=== PATIENT | female | born 1940 | race Caucasian/White ===

== ENCOUNTER 2017-11-02 16:05 | Emergency (ER) | payer MEDICARE, OTHER ==
[2017-11-02 16:14] VITALS: BP 121/54
[2017-11-02] MEDS ORDERED: Famotidine 20 MG/2 ML SDV IVPUSH ONE (16:44)
[2017-11-02] MEDS ORDERED: diphenhydrAMINE 50 MG/ML SDV IVPUSH ONE (16:44)
--- NOTE | 2017-11-02 17:06 | EDM.PDOC ---
ED HPI GENERAL MEDICAL PROBLEM - General Chief Complaint: ENT Problem Stated Complaint: DOUBLE EAR PAIN Time Seen by Provider: 11/02/17 16:59 Source of Information: Reports: Patient History Limitations: Reports: No Limitations - History of Present Illness INITIAL COMMENTS - FREE TEXT/NARRATIVE: 77 year old female presents with her for evaluation and treatment of bilateral ear discomfort. Patient is pleasantly demented and unable to provide a reliable history. reports for the last month she has been picking at her ears and complaining of discomfort. She was seen by her PCP who removed a fair amount of wax from her ear canals. They have been using OTC drops for wax removal since. no fevers, cough or recent cold symptoms. During triage, nursing staff noted erythema to the neck and face. Patient denies any shortness of breath, throat pain or throat swelling. She is in no obvious distress. No new lotions, detergents, soaps, etc. they can think of. Onset: Today Bilateral Ear Pain Score (Numeric/FACES): 4 - Related Data Allergies Allergy/AdvReac Type Severity Reaction Status Date / Time No Known Allergies Allergy Verified 11/02/17 17:18 Home Meds: Home Meds Amiodarone [Cordarone] 200 mg PO DAILY 08/23/16 [History] Aspirin 81 mg PO DAILY 08/23/16 [History] Carvedilol [Coreg] 3.125 mg PO BID 08/23/16 [History] Cholecalciferol (Vitamin D3) [Vitamin D3] 1,000 units PO DAILY 08/23/16 [History ] Clopidogrel [Plavix] 75 mg PO DAILY 08/23/16 [History] Donepezil HCl [Aricept] 5 mg PO DAILY 08/23/16 [History] Eplerenone 25 mg PO DAILY 08/23/16 [History] Gluc HCl/Csa/Dangelo Hy/Hyalur Ac [Glucosamine Chondroitin] 1 tab PO BID 08/23/16 [ History] Lenalidomide [Revlimid] 10 mg PO ASDIRECTED 08/23/16 [History] Levothyroxine 25 mcg PO DAILY 08/23/16 [History] Lisinopril [Prinivil] 2.5 mg PO DAILY 08/23/16 [History] Nitroglycerin [Nitrostat] 0.4 mg SL ASDIRECTED PRN 08/23/16 [History] PARoxetine HCl [Paxil] 30 mg PO DAILY 08/23/16 [History] atorvaSTATin [Lipitor] 80 mg PO DAILY 08/23/16 [History] buPROPion [Wellbutrin XL] 150 mg PO DAILY 08/23/16 [History] Isosorbide Mononitrate [Imdur] 30 mg PO DAILY #30 tab.er 08/25/16 [Rx] Calcium Carbonate [Calcium] 500 mg PO BID 12/24/16 [History] Ferrous Sulfate [Iron] 325 mg PO DAILY 12/24/16 [History] Multivitamin [Multi-Day Vitamins] 1 each PO DAILY 12/24/16 [History] [place]-3 Fatty Acids [Fish Oil] 300 mg PO BID 12/24/16 [History] Vitamin B Complex 1 each PO DAILY 12/24/16 [History] Ciprofloxacin/Dexamethasone [Ciprodex Otic Susp] 4 drop EARBOTH BID #1 bottle [Rx] Past Medical History HEENT History: Reports: Cataract, Impaired Vision Cardiovascular History: Reports: [place] Gastrointestinal History: Reports: GERD 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 - Past Surgical History Cardiovascular Surgical History: Reports: Coronary Artery Stent Other GI Surgeries/Procedures: Anti reflux procedure for GERD Social & Family History - Family History Family Medical History: Noncontributory Cardiac: Reports: [place] Neurological: Reports: CVA - Tobacco Use Smoking Status *Q: Never Smoker Second Hand Smoke Exposure: No - Caffeine Use Caffeine Use: Reports: Coffee, Tea - Alcohol Use Days Per Week of Alcohol Use: 0 - Recreational Drug Use Recreational Drug Use: No - Living Situation & Occupation Living situation: Reports: , with Spouse Occupation: Retired ED ROS ENT - Review of Systems Review Of Systems: See Below Constitutional: Denies: Fever HEENT: Reports: Ear Pain (bilateral). Denies: Ear Discharge, Throat Pain, Throat Swelling Respiratory: Denies: Shortness of Breath, Wheezing, Cough GI/Abdominal: Denies: Nausea, Vomiting Skin: Reports: Pruritis, Erythema (neck, head, arms, cheset and back) ED EXAM, ENT - Physical Exam Exam: See Below Exam Limited By: No Limitations General Appearance: Alert, WD/WN, No Apparent Distress Eye Exam: Bilateral Eye: Normal Inspection Ears: Normal External Exam, Normal TMs, Canal Swelling (right), Other (cerumen present in the right ear canal, removed with a currette ) Nose: Normal Inspection Mouth/Throat: Normal Inspection, Normal Gums, Normal Oropharynx, Normal Teeth. No: Uvular Deviation, Uvular Edema Respiratory/Chest: No Respiratory Distress, Lungs Clear, Normal Breath Sounds Cardiovascular: Normal Peripheral Pulses, Regular Rate, Rhythm, No Murmur GI/Abdominal: Soft, Non-Tender Neurological: Alert, Confused Psychiatric: Normal Affect, Normal Mood Skin: Warm, Dry, Erythema (erythematous macular rash to the neck, head, chest, back, abdomen and bilteral arms) Course - Vital Signs Last Recorded V/S: Last Vital Signs Temp 37.4 C 11/02/17 16:12 Pulse 79 11/02/17 16:12 Resp 20 11/02/17 16:12 BP 121/54 L 11/02/17 16:12 Pulse Ox 99 11/02/17 16:12 - Orders/Labs/Meds Labs: Laboratory Tests 11/02/17 11/02/17 Range/Units 17:05 17:05 WBC 10.42 H (3.98-10.04) K/mm3 RBC 4.15 (3.98-5.22) M/mm3 Hgb 13.7 (11.2-15.7) gm/L Hct 41.9 (34.1-44.9) % MCV 101.0 H (79.4-94.8) fl MCH 33.0 H (25.6-32.2) pg MCHC 32.7 (32.2-35.5) g/dl RDW Std Deviation 53.5 H (36.4-46.3) fL Plt Count 171 L (182-369) K/mm3 MPV 10.2 (9.4-12.3) fl Neutrophils % (Manual) 87 H (40-60) % Band Neutrophils % 0 (0-10) % Lymphocytes % (Manual) 7 L (20-40) % Atypical Lymphs % 0 % Monocytes % (Manual) 4 (2-10) % Eosinophils % (Manual) 2 (0.7-5.8) % Basophils % (Manual) 0 L (0.1-1.2) Platelet Estimate Adequate Plt Morphology Comment Normal Poikilocytosis 1+ slight Stomatocytes 1+ slight RBC Morph Comment Normal Sodium 140 (136-145) mEq/L Potassium 4.7 (3.5-5.1) mEq/L Chloride 106 (98-107) mEq/L Carbon Dioxide 25 (21-32) mEq/L Anion Gap 13.7 (5-15) BUN 33 H (7-18) mg/dL Creatinine 1.8 H (0.55-1.02) mg/dL Est Cr Clr Drug Dosing 21.65 mL/min Estimated GFR (MDRD) 27 (>60) mL/min BUN/Creatinine Ratio 18.3 H (14-18) Glucose 94 (83-115) mg/dL Calcium 9.6 (8.5-10.1) mg/dL Total Bilirubin 0.4 (0.2-1.0) mg/dL AST 47 H (15-37) U/L ALT 60 H (14-59) U/L Alkaline Phosphatase 116 (46-116) U/L Total Protein 6.9 (6.4-8.2) g/dl Albumin 3.4 (3.4-5.0) g/dl Globulin 3.5 gm/dL Albumin/Globulin Ratio 1.0 (1-2) Meds: Medications Discontinued Medications Generic Name Dose Route Start Last Admin Trade Name Freq PRN Reason Stop Dose Admin Dexamethasone 4 mg 11/02/17 18:04 11/02/17 18:25 Dexamethasone IVPUSH 11/02/17 18:05 4 mg ONETIME ONE Administration Diphenhydramine HCl 25 mg 11/02/17 16:44 11/02/17 17:11 Benadryl IVPUSH 11/02/17 16:45 25 mg ONETIME ONE Administration Famotidine 20 mg 11/02/17 16:44 11/02/17 17:11 Pepcid IVPUSH 11/02/17 16:45 20 mg ONETIME ONE Administration Sodium Chloride 10 ml 11/02/17 17:08 11/02/17 17:11 Saline Flush FLUSH 10 ml ASDIRECTED PRN Administration Keep Vein Open - Re-Assessments/Exams Free Text/Narrative Re-Assessment/Exam: 11/02/17 18:00 Hives have significantly improved but are still present. Discussed with Dr. resendiz. Will give a small 4mg IV dose of dexa for further treatment. 11/02/17 19:10 Hives continues to improve. Reviewed labs with the patient and her . Will treat for an otitis externa. Close follow-up. Discharge instructions as documented. Departure - Departure Time of Disposition: 19:13 Disposition: Home, Self-Care 01 Condition: Fair Clinical Impression: Allergic dermatitis, Otitis externa - Discharge Information Prescriptions: Ciprofloxacin/Dexamethasone [Ciprodex Otic Susp] 4 drop EARBOTH BID #1 bottle Instructions: Otitis Externa, [id number], Hives, [id number] Referrals: John Banks MD [Primary Care Provider] - Forms: ED Department Discharge Additional Instructions: Ear drops 4 gtts to each ear bid x 7 days. Benadryl 25mg PO bid x 5 days. This is available OTC. Follow-up with PCP next week. Please return to the ER should your symptoms change or worsen.
[2017-11-02] MEDS ORDERED: Sodium Chloride 0.9% 10 ML Syringe FLUSH PRN (17:08)
[2017-11-02] MEDS ORDERED: Dexamethasone 4 MG/ML SDV IVPUSH ONE (18:04)
== END 2017-11-02 19:35 | disposition home or self-care (01) ==
LOC: JD.ED 16:05
DX: H60.93 Unspecified otitis externa, bilateral (principal); H61.21 Impacted cerumen, right ear; L23.9 Allergic contact dermatitis, unspecified cause; Z79.82 Long term (current) use of aspirin; Z79.899 Other long term (current) drug therapy
CPT/HCPCS: 36415; 69210; 80053; 85025; 96374; 96375; 99283; J1100; J1200; J7050; 99284

== ENCOUNTER 2017-12-25 12:14 | Emergency (ER) | payer MEDICARE, OTHER ==
[2017-12-25] MEDS ORDERED: Sodium Chloride 0.9% 10 ML Syringe FLUSH PRN (12:26)
[2017-12-25] MEDS ORDERED: Sodium Chloride 0.9% 1,000 ML IV SCH (12:30)
--- NOTE | 2017-12-25 13:25 | CT ---
Head CT Technique: Multiple axial sections through the brain were obtained. Intravenous contrast was not utilized. Comparison: Prior head CT study of 12/24/16. Findings: Ventricles along with basal cisterns and sulci over the convexities are mildly prominent. Minimal diminished density is noted within portions of the periventricular and subcortical white matter compatible with minimal small vessel ischemic demyelination change. No other abnormal parenchymal densities are seen. No evidence of intracranial hemorrhage. No midline shift or mass effect is seen. Atherosclerotic change is noted within the carotid siphon and within portions of the vertebral arteries. Bone window settings were reviewed which show no acute calvarial abnormality. Visualized sinuses are clear. Impression: 1. Senescent change as noted above. No acute intracranial abnormality is identified. No appreciable change is seen from prior head CT exam. Diagnostic code #2
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
--- NOTE | 2017-12-25 15:23 | CR ---
Chest: Frontal view of the chest was obtained. Comparison: Prior chest x-ray of 12/24/16. Heart size appears slightly enlarged. Tortuous thoracic aorta is noted. Mild apical pleural thickening is seen which is stable. Slight atelectasis is noted above the right hemidiaphragm. Lungs otherwise are clear. Mild scoliosis is noted within the spine. Impression: 1. Findings as noted above. Nothing acute is seen. Diagnostic code #2
[2017-12-25] MEDS ORDERED: Sodium Chloride 0.9% 100 ML IV SCH (16:00)
[2017-12-25] MEDS ORDERED: Iopamidol 755 Mg/ML 100 ML Bottle IVPUSH ONE (16:00)
[2017-12-25] MEDS ORDERED: Sodium Chloride 0.9% 10 ML Syringe FLUSH ONE (16:00)
--- NOTE | 2017-12-25 16:31 | CT ---
CT chest Technique: Multiple axial sections were obtained through the chest. Intravenous contrast was utilized. Study has been performed as a pulmonary angiogram protocol. Findings: Pulmonary arteries are well-opacified. No filling defects are seen to indicate pulmonary embolism. No pericardial thickening is seen. Coronary artery calcification is noted. Mediastinum and hilar regions show no adenopathy or mass. Atherosclerotic calcification noted within the thoracic aorta. Small hiatal hernia is noted. Small cyst is noted within the upper left kidney measuring 8 mm. Surgical clips are seen at the gastroesophageal junction. Minimal scarring or atelectasis is noted within the right lung base. No acute pulmonary densities or seen within either lung. Bone window settings were reviewed which appears within normal limits for the patient's age. Impression: 1. No findings of pulmonary embolism. 2. Other incidental findings as noted above. Diagnostic code #2
[2017-12-25 17:06] VITALS: BP 143/50
== END 2017-12-25 17:00 | disposition home or self-care (01) ==
LOC: JD.ED 12:14
DX: I95.1 Orthostatic hypotension (principal); R00.1 Bradycardia, unspecified; Z79.82 Long term (current) use of aspirin; Z79.899 Other long term (current) drug therapy
CPT/HCPCS: 36415; 70450; 70450-26; 71045; 71045-26; 71275; 71275-26; 80053; 81001; 83880; 84484; 85025; 85379; 87086; 87088; 87186; 87804; 93005; 93010; 96360; 96361; 99284; 99285-25; J7030; J7040; J7050; Q9967

== ENCOUNTER 2017-12-26 08:50 | Emergency (ER) | payer MEDICARE, OTHER ==
[2017-12-26] MEDS ORDERED: Sodium Chloride 0.9% 10 ML Syringe FLUSH PRN (09:38)
[2017-12-26] MEDS ORDERED: Sodium Chloride 0.9% 1,000 ML IV SCH (09:45)
--- NOTE | 2017-12-26 10:02 | CT ---
Head CT Technique: Multiple axial sections were obtained through the brain. Intravenous contrast was not utilized. Comparison: Prior head CT exam of 12/25/17. Findings: Ventricles along with basal cisterns and sulci over the convexities are mildly prominent. Minimal diminished density is noted within portions of the periventricular and subcortical white matter compatible with small vessel ischemic demyelination change. No other abnormal parenchymal densities are seen. No evidence of intracranial hemorrhage. No midline shift or mass effect is seen. Atherosclerotic calcification is noted within the carotid siphon. Bone window settings were reviewed which shows no acute calvarial abnormality. Visualized sinuses are clear. Impression: 1. Senescent change as noted above. No acute intracranial abnormality is seen. No significant change is seen from recent head CT. Diagnostic code #2
--- NOTE | 2017-12-26 11:52 | US ---
Right lower extremity deep venous ultrasound: Duplex and color flow imaging was obtained of the right common femoral, proximal greater saphenous, superficial femoral, popliteal, posterior tibial and peroneal veins. Left common femoral vein was also evaluated. Lack of phasic flow is seen within the posterior tibial and peroneal veins which is felt to be incidental as normal augmentation and compression is seen within both these veins. Other deep veins show normal phasic flow, augmentation and compression. Impression: 1. No findings of deep venous thrombosis is seen within the right lower extremity or within the left common femoral vein. Diagnostic code #1
--- NOTE | 2017-12-26 11:58 | CR ---
Right foot: Four views of the right foot were obtained. Comparison: No prior foot exam. Bony structures are osteopenic. No calcaneal spurs are seen. No discrete fracture, dislocation or other bony abnormality is seen. Impression: 1. Osteopenia. No additional abnormality is identified on right foot study. Diagnostic code #2
[2017-12-26] MEDS ORDERED: Acetaminophen 325 MG Tab PO STA (12:05)
[2017-12-26] MEDS ORDERED: Doxycycline 100 MG Cap PO ONE (14:23)
--- NOTE | 2017-12-26 14:23 | EDM.PDOC ---
ED HPI GENERAL MEDICAL PROBLEM - General Chief Complaint: Syncope Stated Complaint: WEAK AND UNABLE TO WALK Time Seen by Provider: 12/26/17 09:20 Source of Information: Reports: Patient, Family, RN Notes Reviewed (Daughter and ) - History of Present Illness INITIAL COMMENTS - FREE TEXT/NARRATIVE: 77-year-old lady returns to ED after having been to the ED yesterday having suffered a syncopal event. Please refer to that record for more details of that visit. She was aggressively hydrated. She was feeling better at the time of discharge and to the best of my knowledge vitals were improved. This morning upon awakening she has erythema of the right foot and ankle, pain of the right foot ankle and lower leg and has been unable to walk. As part of her workup yesterday she did have a CT pulmonary angiogram which was negative for pulmonary embolus. There is no report of fall or injury. She has dementia so she is unable to give any type of clear history. He does live at home with her . He is not aware of any fall or injury. She was walking without difficulty last evening. She has no chest or abdominal pain. Not been vomiting. No fever or chills. Right Ankle Pain Score (Numeric/FACES): 10 - Related Data Allergies Allergy/AdvReac Type Severity Reaction Status Date / Time No Known Allergies Allergy Verified 12/26/17 09:23 Home Meds: Home Meds Aspirin 81 mg PO DAILY 08/23/16 [History] Cholecalciferol (Vitamin D3) [Vitamin D3] 1,000 units PO DAILY 08/23/16 [History ] Donepezil HCl [Aricept] 5 mg PO DAILY 08/23/16 [History] Gluc HCl/Csa/Dangelo Hy/Hyalur Ac [Glucosamine Chondroitin] 1 tab PO BID 08/23/16 [ History] Lenalidomide [Revlimid] 10 mg PO ASDIRECTED 08/23/16 [History] Levothyroxine 25 mcg PO DAILY 08/23/16 [History] Lisinopril [Prinivil] 2.5 mg PO DAILY 08/23/16 [History] Nitroglycerin [Nitrostat] 0.4 mg SL ASDIRECTED PRN 08/23/16 [History] atorvaSTATin [Lipitor] 10 mg PO DAILY 08/23/16 [History] buPROPion [Wellbutrin XL] 150 mg PO DAILY 08/23/16 [History] Calcium Carbonate [Calcium] 500 mg PO BID 12/24/16 [History] Ferrous Sulfate [Iron] 325 mg PO DAILY 12/24/16 [History] Multivitamin [Multi-Day Vitamins] 1 each PO DAILY 12/24/16 [History] [place]-3 Fatty Acids [Fish Oil] 300 mg PO BID 12/24/16 [History] Vitamin B Complex 1 each PO DAILY 12/24/16 [History] Doxycycline [Vibramycin] 100 mg PO BID #14 tab 12/26/17 [Rx] Doxycycline [Vibramycin] 100 mg PO BID #14 tab 12/26/17 [Rx] Past Medical History HEENT History: Reports: Cataract, Impaired Vision Cardiovascular History: Reports: [place] Gastrointestinal History: Reports: GERD FAMILY AND [employer] SCI[employer] History: Reports: Musculoskeletal History: Reports: Fracture Other Musculoskeletal History: radius, ulna Neurological History: Reports: Other (See Below) Other Neuro History: dementia, forgetful. 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 - Past Surgical History Cardiovascular Surgical History: Reports: Coronary Artery Stent Other GI Surgeries/Procedures: Anti reflux procedure for GERD Social & Family History - Family History Family Medical History: Noncontributory Cardiac: Reports: [place] Neurological: Reports: CVA - Tobacco Use Smoking Status *Q: Never Smoker Second Hand Smoke Exposure: No - Caffeine Use Caffeine Use: Reports: Coffee - Alcohol Use Days Per Week of Alcohol Use: 0 - Recreational Drug Use Recreational Drug Use: No - Living Situation & Occupation Living situation: Reports: , with Spouse Occupation: Retired ED ROS GENERAL - Review of Systems Review Of Systems: See Below Constitutional: Denies: Fever, Chills, Diaphoresis HEENT: Denies: Sinus Problem, Throat Pain Respiratory: Denies: Shortness of Breath Cardiovascular: Denies: Chest Pain GI/Abdominal: Denies: Abdominal Pain, Diarrhea, Vomiting Musculoskeletal: Reports: Leg Pain (Right foot and ankle leg), Joint Pain, Other (Swelling of the distal right lower extremity) Skin: Reports: Erythema (There is erythema of the lateral aspect of the right foot and ankle) Neurological: Reports: Dizziness, Difficulty Walking ED EXAM, NEURO - Physical Exam Exam: See Below General Appearance: Alert, No Apparent Distress (All lying in bed), Other ( Moderately confused) Eye Exam: Bilateral Eye: PERRL Throat/Mouth: Normal Inspection, Normal Oropharynx Head Exam: Atraumatic. No: Facial Swelling Neck: Supple, Full Range of Motion Respiratory/Chest: No Respiratory Distress, Lungs Clear, Normal Breath Sounds Cardiovascular: Regular Rate, Rhythm GI/Abdominal: Soft, Non-Tender. No: Guarding Neurological: Alert, No Motor/Sensory Deficits, Other (Patient does not have a focal weakness, she does have moderate confusion with extremely poor to nonexistent short-term memory) Back Exam: No: CVA Tenderness (L), CVA Tenderness (R) Extremities: Leg Pain (There is swelling and tenderness of the right distal leg) , Redness (There is erythema swelling and tenderness of the right lateral ankle and foot) Skin Exam: Warm, Dry Course - Vital Signs Last Recorded V/S: Last Vital Signs Temp 99.0 F 12/26/17 08:50 Pulse 61 12/26/17 15:00 Resp 24 H 12/26/17 15:00 BP 91/44 L 12/26/17 15:00 Pulse Ox 96 12/26/17 15:00 - Orders/Labs/Meds Orders: Active Orders 24 hr Category Date Time Status Peripheral IV Care [RC] . DIRECTED Care 12/26/17 09:38 Active Peripheral IV Insertion Adult [OM.PC] Stat Oth 12/26/17 09:37 Ordered Labs: Laboratory Tests 12/26/17 12/26/17 12/26/17 Range/Units 09:40 09:40 09:40 WBC 6.15 (3.98-10.04) K/mm3 RBC 3.77 L (3.98-5.22) M/mm3 Hgb 12.5 (11.2-15.7) gm/L Hct 38.0 (34.1-44.9) % MCV 100.8 H (79.4-94.8) fl MCH 33.2 H (25.6-32.2) pg MCHC 32.9 (32.2-35.5) g/dl RDW Std Deviation 49.8 H (36.4-46.3) fL Plt Count 115 L (182-369) K/mm3 MPV 11.5 (9.4-12.3) fl Neut % (Auto) 79.8 H (34.0-71.1) % Lymph % (Auto) 8.8 L (19.3-51.7) % [place] % (Auto) 9.1 (4.7-12.5) % Eos % (Auto) 1.5 (0.7-5.8) Baso % (Auto) 0.5 (0.1-1.2) % Neut # (Auto) 4.91 (1.56-6.13) K/mm3 Lymph # (Auto) 0.54 L (1.18-3.74) K/mm3 [place] # (Auto) 0.56 H (0.24-0.36) K/mm3 Eos # (Auto) 0.09 (0.04-0.36) K/mm3 Baso # (Auto) 0.03 (0.01-0.08) K/mm3 Manual Slide Review Abnormal smear D-Dimer, Quantitative 2.07 H (0.19-0.59) mg/L Sodium 137 (136-145) mEq/L Potassium 4.1 (3.5-5.1) mEq/L Chloride 104 (98-107) mEq/L Carbon Dioxide 25 (21-32) mEq/L Anion Gap 12.1 (5-15) BUN 22 H (7-18) mg/dL Creatinine 1.6 H (0.55-1.02) mg/dL Est Cr Clr Drug Dosing 23.29 mL/min Estimated GFR (MDRD) 31 (>60) mL/min BUN/Creatinine Ratio 13.8 L (14-18) Glucose 204 H (83-115) mg/dL Calcium 8.9 (8.5-10.1) mg/dL Total Bilirubin 0.6 (0.2-1.0) mg/dL AST 28 (15-37) U/L ALT 37 (14-59) U/L Alkaline Phosphatase 62 (46-116) U/L C-Reactive Protein 2.5 H* (<1.0) mg/dL Total Protein 6.3 L (6.4-8.2) g/dl Albumin 3.0 L (3.4-5.0) g/dl Globulin 3.3 gm/dL Albumin/Globulin Ratio 0.9 L (1-2) Meds: Medications Discontinued Medications Generic Name Dose Route Start Last Admin Trade Name Guido PRN Reason Stop Dose Admin Acetaminophen 975 mg 12/26/17 12:05 12/26/17 12:12 Tylenol PO 12/26/17 12:06 975 mg NOW STA Administration Doxycycline Hyclate 100 mg 12/26/17 14:23 12/26/17 14:35 Vibramycin PO 12/26/17 14:24 100 mg ONETIME ONE Administration Sodium Chloride 1,000 mls @ 150 mls/hr 12/26/17 09:45 12/26/17 10:12 Normal Saline IV 150 mls/hr ASDIRECTED [place] Administration Sodium Chloride 10 ml 12/26/17 09:38 12/26/17 10:14 Saline Flush FLUSH 10 ml ASDIRECTED PRN Administration Keep Vein Open - Re-Assessments/Exams Free Text/Narrative Re-Assessment/Exam: 12/26/17 14:25 Labs are as documented, white blood count normal, C-reactive protein mildly elevated. X-rays of the foot are negative for fracture. Ultrasound of the right distal lower extremity is negative for deep venous thrombosis. Patient was unable to walk on arrival. We have given her Tylenol. We are now attempting to see if she can do better after having had some rest, time and Tylenol. Doxycycline 100 mg by mouth also has been ordered for the cellulitis of the right foot and ankle. 12/26/17 20:06. Patient did much better than expected after the Tylenol. With a walker she was able to cruise up and down the hallway quite well with minimal discomfort. With that in mind she was able to go home, discharge instructions as documented. Departure - Departure Time of Disposition: 14:32 Disposition: Home, Self-Care 01 Condition: Fair Clinical Impression: Cellulitis Qualifiers: Site of cellulitis: extremity Site of cellulitis of extremity: lower extremity Laterality: right Qualified Code(s): L03.115 - Cellulitis of right lower limb Leg pain Qualifiers: Laterality: right Qualified Code(s): M79.604 - Pain in right leg - Discharge Information Prescriptions: Doxycycline [Vibramycin] 100 mg PO BID #14 tab Doxycycline [Vibramycin] 100 mg PO BID #14 tab Instructions: Cellulitis, Adult, [id number] Referrals: John Banks MD [Primary Care Provider] - Forms: ED Department Discharge Additional Instructions: Try keep foot and leg elevated as much as possible. Doxycycline 100 mg twice daily for 1 full week. Next dose this evening at bedtime. Prescription has been sent electronically to [facility]. Tylenol two 500 mg tablets in the morning, one 500 mg tablet early afternoon, two 500 mg tablets at bedtime. When the pain starts getting better then go to 1 500 mg tablet [address] Sandoval tomorrow as planned. Return to ED as needed if symptoms worsening in any way. - My Orders Last 24 Hours: My Active Orders 12/26/17 09:37 Peripheral IV Insertion Adult [OM.PC] Stat 12/26/17 09:38 Peripheral IV Care [RC] . DIRECTED - Assessment/Plan Last 24 Hours: My Active Orders 12/26/17 09:37 Peripheral IV Insertion Adult [OM.PC] Stat 12/26/17 09:38 Peripheral IV Care [RC] . DIRECTED
[2017-12-26 16:41] VITALS: BP 91/44
== END 2017-12-26 15:00 | disposition home or self-care (01) ==
LOC: JD.ED 08:50
DX: L03.115 Cellulitis of right lower limb (principal); K21.9 Gastro-esophageal reflux disease without esophagitis; E03.9 Hypothyroidism, unspecified; Z79.82 Long term (current) use of aspirin; Z79.899 Other long term (current) drug therapy
CPT/HCPCS: 36415; 70450; 73630; 80053; 85025; 85379; 86140; 93971; 96360; 96361; 99285; A9270; J7040; J7050; 99284

== ENCOUNTER 2018-04-20 12:46 | Emergency (ER) | payer MEDICARE, OTHER ==
--- NOTE | 2018-04-20 13:21 | EDM.PDOC ---
ED HPI GENERAL MEDICAL PROBLEM - General Chief Complaint: Back Pain or Injury Stated Complaint: BACK PAIN Time Seen by Provider: 04/20/18 13:19 Source of Information: Reports: Patient, Family (), Old Records History Limitations: Reports: No Limitations - History of Present Illness INITIAL COMMENTS - FREE TEXT/NARRATIVE: 78 year old female presents for evaluation and treatment of left sided midback and left flank pain. Patient is pleasantly demented and does not provide much reliable history. History is mostly obtained from her . Reports symptoms started about 3 days ago. initially her denies any recent falls but recalls later on that she did fall about 3 days ago in a parking lot. She is primarily complaining of pain to the left upper quadrant, left flank and left mid lateral back. States the pain is intermittent and sharp. Worse with palpation and movement. No chest pain, shortness of breath, syncope, vomiting or dizziness. Patient has a history of multiple myeloma. Her is very concerned this could be a reemergence of her cancer. She has been in remission fo r the last 5 years. She currently sees oncology in [place]. Last visit was recently. Duration: Day(s): (3), Intermittent Location: Reports: Abdomen (LUQ/ left flank), Back (mid lateral left back) Quality: Reports: Sharp, Stabbing - Related Data Allergies Allergy/AdvReac Type Severity Reaction Status Date / Time No Known Allergies Allergy Verified 12/26/17 09:23 Home Meds: Home Meds Aspirin 81 mg PO DAILY 08/23/16 [History] Cholecalciferol (Vitamin D3) [Vitamin D3] 1,000 units PO DAILY 08/23/16 [History ] Donepezil HCl [Aricept] 5 mg PO DAILY 08/23/16 [History] Gluc HCl/Csa/Dangelo Hy/Hyalur Ac [Glucosamine Chondroitin] 1 tab PO BID 08/23/16 [ History] Lenalidomide [Revlimid] 10 mg PO ASDIRECTED 08/23/16 [History] Levothyroxine 25 mcg PO DAILY 08/23/16 [History] Lisinopril [Prinivil] 2.5 mg PO DAILY 08/23/16 [History] Nitroglycerin [Nitrostat] 0.4 mg SL ASDIRECTED PRN 08/23/16 [History] atorvaSTATin [Lipitor] 10 mg PO DAILY 08/23/16 [History] buPROPion [Wellbutrin XL] 150 mg PO DAILY 08/23/16 [History] Calcium Carbonate [Calcium] 500 mg PO BID 12/24/16 [History] Ferrous Sulfate [Iron] 325 mg PO DAILY 12/24/16 [History] Multivitamin [Multi-Day Vitamins] 1 each PO DAILY 12/24/16 [History] [place]-3 Fatty Acids [Fish Oil] 300 mg PO BID 12/24/16 [History] Vitamin B Complex 1 each PO DAILY 12/24/16 [History] traMADol [Ultram] 50 mg PO Q6H PRN #20 tab 04/20/18 [Rx] Past Medical History HEENT History: Reports: Cataract, Impaired Vision Cardiovascular History: Reports: [place] Gastrointestinal History: Reports: G[employer]D [employer]ATE History: Reports: Musculoskeletal History: Reports: Fracture Other Musculoskeletal History: radius, ulna Neurological History: Reports: Other (See Below) Other Neuro History: dementia, forgetful. 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 - Past Surgical History Cardiovascular Surgical History: Reports: Coronary Artery Stent Other GI Surgeries/Procedures: Anti reflux procedure for GERD Social & Family History - Family History Family Medical History: Noncontributory Cardiac: Reports: DE Neurological: Reports: CVA - Tobacco Use Smoking Status *Q: Never Smoker - Caffeine Use Caffeine Use: Reports: Coffee, Soda, Tea - Recreational Drug Use Recreational Drug Use: No - Living Situation & Occupation Living situation: Reports: , with Spouse Occupation: Retired ED ROS GENERAL - Review of Systems Review Of Systems: See Below Respiratory: Denies: Shortness of Breath Cardiovascular: Denies: Chest Pain GI/Abdominal: Reports: Abdominal Pain (left upper quadrant). Denies: Vomiting : Reports: Flank Pain (left) Musculoskeletal: Reports: Back Pain (left mid back) Neurological: Denies: Syncope Psychiatric: Reports: Confusion (chronic, no change from baseline) ED EXAM, UPPER BACK/NECK PAIN - Physical Exam Exam: See Below Exam Limited By: No Limitations General Appearance: Alert, WD/WN, No Apparent Distress Eye Exam: Bilateral Eye: Normal Inspection Ears Exam: Normal External Exam Nose Exam: Normal Inspection Throat/Mouth Exam: Normal Inspection, Normal Lips, Normal Voice, No Airway Compromise Head Exam: Atraumatic, Normocephalic Neck Exam: Non-Tender, Full Range of Motion, Normal Alignment, Normal Inspection Cardiovascular/Respiratory: Regular Rate, Rhythm, No M/R/G, Normal Peripheral Pulses GI/Abdominal: Normal Bowel Sounds, Soft, Non-Tender, Other (identies pain to the left upper quadrant, left flank and left lateral mid back around ribs 8-10) Back Exam: Normal Inspection. No: Vertebral Tenderness Extremities: Normal Inspection Psychiatric: Normal Affect, Normal Mood Skin Exam: Normal Color, Warm/Dry. No: Ecchymosis EKG INTERPRETATION EKG Date: 04/20/18 Time: 13:40 Rhythm: NSR Rate (Beats/Min): 63 [place]: Normal P-Wave: Present QRS: Normal ST-T: Normal QT: Normal EKG Interpretation Comments: NSR at 63bpm. T wave inversion V1 to V4. No acute changes. Reviewed by myself and Dr. Knapp. Course - Vital Signs Last Recorded V/S: Last Vital Signs Temp 97.9 F 04/20/18 15:11 Pulse 60 04/20/18 15:11 Resp 18 04/20/18 15:11 BP 130/55 L 04/20/18 15:11 Pulse Ox 97 04/20/18 15:11 - Orders/Labs/Meds Labs: Laboratory Tests 04/20/18 04/20/18 04/20/18 Range/Units 13:40 13:40 13:40 WBC 4.32 (3.98-10.04) K/mm3 RBC 3.91 L (3.98-5.22) M/mm3 Hgb 12.7 (11.2-15.7) gm/L Hct 38.4 (34.1-44.9) % MCV 98.2 H (79.4-94.8) fl MCH 32.5 H (25.6-32.2) pg MCHC 33.1 (32.2-35.5) g/dl RDW Std Deviation 50.1 H (36.4-46.3) fL Plt Count 166 L (182-369) K/mm3 MPV 10.7 (9.4-12.3) fl Neut % (Auto) 65.4 (34.0-71.1) % Lymph % (Auto) 17.6 L (19.3-51.7) % [place] % (Auto) 12.5 (4.7-12.5) % Eos % (Auto) 2.8 (0.7-5.8) Baso % (Auto) 1.2 (0.1-1.2) % Neut # (Auto) 2.83 (1.56-6.13) K/mm3 Lymph # (Auto) 0.76 L (1.18-3.74) K/mm3 [place] # (Auto) 0.54 H (0.24-0.36) K/mm3 Eos # (Auto) 0.12 (0.04-0.36) K/mm3 Baso # (Auto) 0.05 (0.01-0.08) K/mm3 Sodium 141 (136-145) mEq/L Potassium 4.7 (3.5-5.1) mEq/L Chloride 107 (98-107) mEq/L Carbon Dioxide 23 (21-32) mEq/L Anion Gap 15.7 H (5-15) BUN 32 H (7-18) mg/dL Creatinine 1.6 H (0.55-1.02) mg/dL Est Cr Clr Drug Dosing 22.92 mL/min Estimated GFR (MDRD) 31 (>60) mL/min BUN/Creatinine Ratio 20.0 H (14-18) Glucose 112 (83-115) mg/dL Calcium 9.1 (8.5-10.1) mg/dL Total Bilirubin 0.6 (0.2-1.0) mg/dL AST 26 (15-37) U/L ALT 20 (14-59) U/L Alkaline Phosphatase 69 (46-116) U/L Troponin I < 0.017 (0.00-0.056) ng/mL C-Reactive Protein 0.4 (<1.0) mg/dL Total Protein 6.3 L (6.4-8.2) g/dl Albumin 3.0 L (3.4-5.0) g/dl Globulin 3.3 gm/dL Albumin/Globulin Ratio 0.9 L (1-2) Lipase 129 (73-393) U/L Urine Color (Yellow) Urine Appearance (Clear) Urine pH (5.0-8.0) Ur Specific [place] (1.005-1.030) Urine Protein (Negative) Urine Glucose (UA) (Negative) Urine Ketones (Negative) Urine Occult Blood (Negative) Urine Nitrite (Negative) Urine Bilirubin (Negative) Urine Urobilinogen (0.2-1.0) Ur Leukocyte Esterase (Negative) Urine RBC (0-5) /hpf Urine WBC (0-5) /hpf Ur Epithelial Cells (0-5) /hpf Urine Bacteria (FEW) /hpf Urine Mucus (FEW) /hpf 04/20/18 Range/Units 14:55 WBC (3.98-10.04) K/mm3 RBC (3.98-5.22) M/mm3 Hgb (11.2-15.7) gm/L Hct (34.1-44.9) % MCV (79.4-94.8) fl MCH (25.6-32.2) pg MCHC (32.2-35.5) g/dl RDW Std Deviation (36.4-46.3) fL Plt Count (182-369) K/mm3 MPV (9.4-12.3) fl Neut % (Auto) (34.0-71.1) % Lymph % (Auto) (19.3-51.7) % [place] % (Auto) (4.7-12.5) % Eos % (Auto) (0.7-5.8) Baso % (Auto) (0.1-1.2) % Neut # (Auto) (1.56-6.13) K/mm3 Lymph # (Auto) (1.18-3.74) K/mm3 [place] # (Auto) (0.24-0.36) K/mm3 Eos # (Auto) (0.04-0.36) K/mm3 Baso # (Auto) (0.01-0.08) K/mm3 Sodium (136-145) mEq/L Potassium (3.5-5.1) mEq/L Chloride (98-107) mEq/L Carbon Dioxide (21-32) mEq/L Anion Gap (5-15) BUN (7-18) mg/dL Creatinine (0.55-1.02) mg/dL Est Cr Clr Drug Dosing mL/min Estimated GFR (MDRD) (>60) mL/min BUN/Creatinine Ratio (14-18) Glucose (83-115) mg/dL Calcium (8.5-10.1) mg/dL Total Bilirubin (0.2-1.0) mg/dL AST (15-37) U/L ALT (14-59) U/L Alkaline Phosphatase (46-116) U/L Troponin I (0.00-0.056) ng/mL C-Reactive Protein (<1.0) mg/dL Total Protein (6.4-8.2) g/dl Albumin (3.4-5.0) g/dl Globulin gm/dL Albumin/Globulin Ratio (1-2) Lipase (73-393) U/L Urine Color Yellow (Yellow) Urine Appearance Clear (Clear) Urine pH 7.0 (5.0-8.0) Ur Specific [place] 1.020 (1.005-1.030) Urine Protein Negative (Negative) Urine Glucose (UA) Negative (Negative) Urine Ketones Negative (Negative) Urine Occult Blood Trace-lysed H (Negative) Urine Nitrite Negative (Negative) Urine Bilirubin Negative (Negative) Urine Urobilinogen 0.2 (0.2-1.0) Ur Leukocyte Esterase Trace H (Negative) Urine RBC 0-5 (0-5) /hpf Urine WBC 0-5 (0-5) /hpf Ur Epithelial Cells 0-5 (0-5) /hpf Urine Bacteria Few (FEW) /hpf Urine Mucus Not seen (FEW) /hpf Meds: Medications Discontinued Medications Generic Name Dose Route Start Last Admin Trade Name Freq PRN Reason Stop Dose Admin Sodium Chloride 500 mls @ 500 mls/hr 04/20/18 13:23 04/20/18 13:42 Normal Saline IV 04/20/18 14:22 500 mls/hr ONETIME ONE Administration Iopamidol 100 ml 04/20/18 14:20 04/20/18 14:36 [id number] (76%) IVPUSH 04/20/18 14:21 100 ml ONETIME ONE Administration Morphine Sulfate 1 mg 04/20/18 13:24 04/20/18 13:42 Morphine IVPUSH 04/20/18 13:25 1 mg ONETIME ONE Administration Orphenadrine Citrate 100 mg 04/20/18 15:34 04/20/18 15:40 Norflex PO 04/20/18 15:35 100 mg NOW STA Administration Sodium Chloride 10 ml 04/20/18 13:22 04/20/18 13:42 Saline Flush FLUSH 10 ml ASDIRECTED PRN Administration Keep Vein Open Sodium Chloride 10 ml 04/20/18 14:20 04/20/18 14:38 Saline Flush FLUSH 10 ml ONETIME PRN Administration IV FLUSH - Radiology Interpretation Free Text/Narrative:: CT of the abdomen and pelvis with IV contrast impression per vrad: cholelithiasis. stable nonspecific mild sclerosis of he sacrum. xray of the chest and left ribs shows no acute intrathroacic process. no rib fractures. - Re-Assessments/Exams Free Text/Narrative Re-Assessment/Exam: 04/20/18 15:36 I reviewed the labs, ekg and imaging with the patient and her . The recalls now that she did fall in a parking lot 3 days ago. Nothing seen on Ct but concerned she may have rib fractures. Will obtain chest xray with rib views. Patient continues to have some discomfort despite morphine. Will try norflex for additional pain relief. Patient does not seem in any obvious pain but does wince on occasion wit hcertain movements. 04/20/18 16:32 Reviewed the x-ray results with patient and her . Her do feel this is likely musculoskeletal in origin. I will give her some tramadol and have her follow up with her primary care provider within 2 weeks. Discharge instruction as documented. Departure - Departure Time of Disposition: 16:32 Disposition: Home, Self-Care 01 Condition: Fair Clinical Impression: Rib pain on left side - Discharge Information Prescriptions: traMADol [Ultram] 50 mg PO Q6H PRN #20 tab PRN Reason: Pain Referrals: John Banks MD [Primary Care Provider] - Forms: ED Department Discharge Additional Instructions: Recommend using ice or heat to the sore area for additional pain relief. May take [id number] Tylenol or Motrin as a for pain relief. For pain not relieved by Tylenol or Motrin may take tramadol 1 tab every 6 hours. You were given medication the ER to the temperature ability to drive and operate machinery. Do not drive or operate machinery within 12 hours of taking prescription narcotic pain medication. Follow-up with your primary care provider within 2 weeks for recheck of her symptoms. Please return to the ER if your symptoms change or worsen.
[2018-04-20] MEDS ORDERED: Sodium Chloride 0.9% 10 ML Syringe FLUSH PRN ×2 (13:22→14:20)
[2018-04-20] MEDS ORDERED: Sodium Chloride 0.9% 500 ML IV ONE (13:23)
[2018-04-20] MEDS ORDERED: Morphine 2 MG/ML Syringe IVPUSH ONE (13:24)
[2018-04-20] MEDS ORDERED: Iopamidol 755 Mg/ML 100 ML Bottle IVPUSH ONE (14:20)
[2018-04-20 15:12] VITALS: BP 130/55
[2018-04-20] MEDS ORDERED: Orphenadrine 100 MG Tab.ER PO STA (15:34)
--- NOTE | 2018-04-22 11:27 | CT ---
CT abdomen and pelvis Technique: Multiple axial sections were obtained from above the dome of the diaphragm inferiorly through the pubic symphysis. Intravenous contrast was utilized. No oral contrast has been given. Delayed images were obtained through the abdomen and pelvis. Comparison: Prior abdominal and pelvic CT exam performed on 03/28/15. Findings: Small portion of visualized lung bases show nothing acute. Small hiatal hernia is seen. Surgical clips are seen at the gastroesophageal junction. Liver shows no focal parenchymal abnormality. One or possibly two adjacent calcified gallstones are seen within the gallbladder. Adrenal glands show no nodule. Small low density finding is seen within the upper right kidney measuring about 1.6 cm in size. This is an interval change from prior study but most likely represents a small cyst. No additional renal abnormalities are appreciated. Aorta shows atherosclerotic change without aneurysmal dilatation. Atherosclerotic change continues into the iliac vessels. No retroperitoneal adenopathy or mesenteric abnormalities are seen. Pancreas appears within normal limits. No pelvic mass or adenopathy is seen. Appendix not visualized with certainty. Delayed images show contrast excretion into both ureters and bladder. No free fluid or inflammatory change is seen. Old healed inferior right pubic ramus fracture is noted. Mild degenerative change is noted within the spine. Impression: 1. Calcified gallstones within the gallbladder. 2. Other incidental findings. Nothing acute is appreciated. Diagnostic code #2 I agree with preliminary report from [facility], finalized at 04/20/18, 4:07 PM Central Time
--- NOTE | 2018-04-22 11:27 | CR ---
Chest and left ribs: Frontal view of the chest was obtained as well as two views of the left ribs. Comparison: Prior chest x-ray of 12/25/17. Heart size appears slightly enlarged. Tortuous thoracic aorta is seen. Lungs show no acute parenchymal densities. Bony structures are osteopenic. Surgical clips seen within the upper abdomen. No discrete rib fracture is identified. Probable old left lower rib fracture is noted. Impression: 1. No discrete acute rib fracture. Nondisplaced fracture could easily be missed. 2. Nothing acute is seen on accompanying chest x-ray. Diagnostic code #2
== END 2018-04-20 16:53 | disposition home or self-care (01) ==
LOC: JD.ED 12:46
DX: R07.81 Pleurodynia (principal); E03.9 Hypothyroidism, unspecified; I25.2 Old myocardial infarction; Z79.82 Long term (current) use of aspirin; Z79.899 Other long term (current) drug therapy
CPT/HCPCS: 36415; 71101; 74177; 80053; 81001; 83690; 84484; 85025; 86140; 93005; 96361; 96374; 99284; A9270; J2270; J7040; J7050; Q9967; 93010

== ENCOUNTER 2018-12-17 16:02 | Emergency (ER) | payer MEDICARE, OTHER ==
[2018-12-17 16:18] VITALS: BP 154/74
[2018-12-17] MEDS ORDERED: Sodium Chloride 0.9% 500 ML IV ONE (16:34)
[2018-12-17] MEDS ORDERED: LORazepam 2 MG/ML SDV IVPUSH ONE (16:34)
[2018-12-17] MEDS ORDERED: Sodium Chloride 0.9% 10 ML Syringe FLUSH PRN (16:34)
--- NOTE | 2018-12-17 18:09 | EDM.PDOC ---
<GómezCristopher powell Thelma - Last Filed: 12/17/18 18:23> ED HPI GENERAL MEDICAL PROBLEM - General Chief Complaint: Gastrointestinal Problem Stated Complaint: STAMACH PAIN Time Seen by Provider: 12/17/18 16:25 Source of Information: Reports: Patient, RN Notes Reviewed - History of Present Illness INITIAL COMMENTS - FREE TEXT/NARRATIVE: 78-year-old female brought here by family with concerns of some left lower abdominal pain earlier today and also voiding frequency. Patient does have severe dementia. Comfort is currently gone, she does not remember those symptoms. Family states she's not been eating or drinking well the last few days. No current vomiting or diarrhea. - Related Data Allergies Allergy/AdvReac Type Severity Reaction Status Date / Time No Known Allergies Allergy Verified 12/17/18 16:18 Home Meds: Home Meds Aspirin 81 mg PO BEDTIME 08/23/16 [History] Cholecalciferol (Vitamin D3) [Vitamin D3] 1,000 units PO DAILY 08/23/16 [History ] Gluc HCl/Csa/Dangelo Hy/Hyalur Ac [Glucosamine Chondroitin] 1 tab PO BID 08/23/16 [ History] Levothyroxine 25 mcg PO DAILY 08/23/16 [History] Lisinopril [Prinivil] 2.5 mg PO DAILY 08/23/16 [History] buPROPion [Wellbutrin XL] 300 mg PO DAILY 08/23/16 [History] Calcium Carbonate [Calcium] 500 mg PO BID 12/24/16 [History] Ferrous Sulfate [Iron] 325 mg PO DAILY 12/24/16 [History] Multivitamin [Multi-Day Vitamins] 1 each PO DAILY 12/24/16 [History] [place]-3 Fatty Acids [Fish Oil] 300 mg PO BID 12/24/16 [History] Vitamin B Complex 1 each PO BEDTIME 12/24/16 [History] Clobetasol [Clobetasol Propionate 0.05% Cream] 1 dose TOP ASDIRECTED PRN [History] Donepezil [Aricept] 5 mg PO BEDTIME 12/17/18 [History] Lenalidomide [Revlimid] 1 tab PO ASDIRECTED 12/17/18 [History] Melatonin/Pyridoxine HCl (B6) [Melatonin 3 mg Tablet] 2 tab PO BEDTIME 12/17/18 [History] Prevagen 1 tab PO DAILY 12/17/18 [History] Rosuvastatin [Crestor] 10 mg PO DAILY 12/17/18 [History] Sertraline [Zoloft] 100 mg PO BEDTIME 12/17/18 [History] Past Medical History HEENT History: Reports: Cataract, Impaired Vision Cardiovascular History: Reports: [place] Gastrointestinal History: Reports: GERD 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 - Past Surgical History Cardiovascular Surgical History: Reports: Coronary Artery Stent Other GI Surgeries/Procedures: Anti reflux procedure for GERD Social & Family History - Family History Family Medical History: Noncontributory Cardiac: Reports: [place] Neurological: Reports: CVA - Tobacco Use Smoking Status *Q: Never Smoker - Caffeine Use Caffeine Use: Reports: Coffee - Recreational Drug Use Recreational Drug Use: No - Living Situation & Occupation Living situation: Reports: , with Spouse Occupation: Retired ED ROS GENERAL - Review of Systems Review Of Systems: See Below Constitutional: Denies: Fever, Chills HEENT: Reports: No Symptoms Respiratory: Denies: Shortness of Breath Cardiovascular: Denies: Chest Pain GI/Abdominal: Reports: Abdominal Pain (Left lower abdomen, gone) : Reports: Frequency Musculoskeletal: Denies: Back Pain Skin: Reports: No Symptoms Neurological: Reports: Confusion (Chronic with history dementia) Psychiatric: Reports: Anxiety (Chronic) ED EXAM, GI/ABD - Physical Exam Exam: See Below General Appearance: Alert, Anxious Eyes: Bilateral: Normal Appearance Throat/Mouth: Normal Inspection, Normal Oropharynx Head: Atraumatic Neck: Supple Respiratory/Chest: No Respiratory Distress, Lungs Clear, Normal Breath Sounds Cardiovascular: Regular Rate, Rhythm GI/Abdominal Exam: Soft, Non-Tender. No: Guarding Back Exam: No: CVA Tenderness (L), CVA Tenderness (R) Extremities: No: Pedal Edema, Pallor Neurological: Alert, Disoriented, Other (Confused, chronic) Skin Exam: Warm, Normal Color Course - Vital Signs Last Recorded V/S: Last Vital Signs Temp 36.1 C 12/17/18 16:15 Pulse 79 12/17/18 16:15 Resp 18 12/17/18 16:15 BP 154/74 H 12/17/18 16:15 Pulse Ox 96 12/17/18 16:15 - Orders/Labs/Meds Orders: Active Orders 24 hr Category Date Time Status Peripheral IV Care [RC] . DIRECTED Care 12/17/18 16:34 Active Sodium Chloride 0.9% [Saline Flush] Med 12/17/18 16:34 Active 10 ml FLUSH ASDIRECTED PRN Peripheral IV Insertion Adult [OM.PC] Stat Oth 12/17/18 16:34 Ordered Medication Orders Sodium Chloride (Saline Flush) 10 ml FLUSH ASDIRECTED PRN PRN Reason: Keep Vein Open Last Admin: 12/17/18 16:45 Dose: 10 ml Labs: Laboratory Tests 12/17/18 12/17/18 12/17/18 Range/Units 17:10 17:10 17:10 WBC 4.08 (3.98-10.04) K/mm3 RBC 2.91 L (3.98-5.22) M/mm3 Hgb 11.5 (11.2-15.7) gm/L Hct 29.3 L (34.1-44.9) % MCV 100.7 H (79.4-94.8) fl MCH 39.5 H (25.6-32.2) pg MCHC 39.2 H (32.2-35.5) g/dl RDW Std Deviation 50.1 H (36.4-46.3) fL Plt Count 91 L (182-369) K/mm3 MPV 10.7 (9.4-12.3) fl Neut % (Auto) 67.2 (34.0-71.1) % Lymph % (Auto) 16.4 L (19.3-51.7) % [place] % (Auto) 12.5 (4.7-12.5) % Eos % (Auto) 2.7 (0.7-5.8) Baso % (Auto) 1.0 (0.1-1.2) % Neut # (Auto) 2.74 (1.56-6.13) K/mm3 Lymph # (Auto) 0.67 L (1.18-3.74) K/mm3 [place] # (Auto) 0.51 H (0.24-0.36) K/mm3 Eos # (Auto) 0.11 (0.04-0.36) K/mm3 Baso # (Auto) 0.04 (0.01-0.08) K/mm3 Manual Slide Review Abnormal smear Sodium 145 (136-145) mEq/L Potassium 4.3 (3.5-5.1) mEq/L Chloride 109 H (98-107) mEq/L Carbon Dioxide 24 (21-32) mEq/L Anion Gap 16.3 H (5-15) BUN 22 H (7-18) mg/dL Creatinine 1.4 H (0.55-1.02) mg/dL Est Cr Clr Drug Dosing 26.19 mL/min Estimated GFR (MDRD) 36 (>60) mL/min BUN/Creatinine Ratio 15.7 (14-18) Glucose 112 (83-115) mg/dL Calcium 8.9 (8.5-10.1) mg/dL Total Bilirubin 0.5 (0.2-1.0) mg/dL AST 21 (15-37) U/L ALT 26 (14-59) U/L Alkaline Phosphatase 60 (46-116) U/L C-Reactive Protein 0.2 (<1.0) mg/dL Total Protein 6.5 (6.4-8.2) g/dl Albumin 3.5 (3.4-5.0) g/dl Globulin 3.0 gm/dL Albumin/Globulin Ratio 1.2 (1-2) Urine Color (Yellow) Urine Appearance (Clear) Urine pH (5.0-8.0) Ur Specific [place] (1.005-1.030) Urine Protein (Negative) Urine Glucose (UA) (Negative) Urine Ketones (Negative) Urine Occult Blood (Negative) Urine Nitrite (Negative) Urine Bilirubin (Negative) Urine Urobilinogen (0.2-1.0) Ur Leukocyte Esterase (Negative) Urine RBC (0-5) /hpf Urine WBC (0-5) /hpf Ur Epithelial Cells (0-5) /hpf Urine Bacteria (FEW) /hpf Urine Mucus (FEW) /hpf 12/17/18 Range/Units 18:24 WBC (3.98-10.04) K/mm3 RBC (3.98-5.22) M/mm3 Hgb (11.2-15.7) gm/L Hct (34.1-44.9) % MCV (79.4-94.8) fl MCH (25.6-32.2) pg MCHC (32.2-35.5) g/dl RDW Std Deviation (36.4-46.3) fL Plt Count (182-369) K/mm3 MPV (9.4-12.3) fl Neut % (Auto) (34.0-71.1) % Lymph % (Auto) (19.3-51.7) % [place] % (Auto) (4.7-12.5) % Eos % (Auto) (0.7-5.8) Baso % (Auto) (0.1-1.2) % Neut # (Auto) (1.56-6.13) K/mm3 Lymph # (Auto) (1.18-3.74) K/mm3 [place] # (Auto) (0.24-0.36) K/mm3 Eos # (Auto) (0.04-0.36) K/mm3 Baso # (Auto) (0.01-0.08) K/mm3 Manual Slide Review Sodium (136-145) mEq/L Potassium (3.5-5.1) mEq/L Chloride (98-107) mEq/L Carbon Dioxide (21-32) mEq/L Anion Gap (5-15) BUN (7-18) mg/dL Creatinine (0.55-1.02) mg/dL Est Cr Clr Drug Dosing mL/min Estimated GFR (MDRD) (>60) mL/min BUN/Creatinine Ratio (14-18) Glucose (83-115) mg/dL Calcium (8.5-10.1) mg/dL Total Bilirubin (0.2-1.0) mg/dL AST (15-37) U/L ALT (14-59) U/L Alkaline Phosphatase (46-116) U/L C-Reactive Protein (<1.0) mg/dL Total Protein (6.4-8.2) g/dl Albumin (3.4-5.0) g/dl Globulin gm/dL Albumin/Globulin Ratio (1-2) Urine Color Yellow (Yellow) Urine Appearance Slt cloudy H (Clear) Urine pH 6.5 (5.0-8.0) Ur Specific [place] 1.020 (1.005-1.030) Urine Protein 1+ H (Negative) Urine Glucose (UA) Negative (Negative) Urine Ketones Trace H (Negative) Urine Occult Blood 2+ H (Negative) Urine Nitrite Negative (Negative) Urine Bilirubin Negative (Negative) Urine Urobilinogen 0.2 (0.2-1.0) Ur Leukocyte Esterase Trace H (Negative) Urine RBC 5-10 H (0-5) /hpf Urine WBC 30-40 H (0-5) /hpf Ur Epithelial Cells 5-10 H (0-5) /hpf Urine Bacteria Few (FEW) /hpf Urine Mucus Few (FEW) /hpf Meds: Medications Generic Name Dose Route Start Last Admin Trade Name Freq PRN Reason Stop Dose Admin Sodium Chloride 10 ml 12/17/18 16:34 12/17/18 16:45 Saline Flush FLUSH 10 ml ASDIRECTED PRN Administration Keep Vein Open Discontinued Medications Generic Name Dose Route Start Last Admin Trade Name Freq PRN Reason Stop Dose Admin Sodium Chloride 500 mls @ 999 mls/hr 12/17/18 16:34 12/17/18 16:57 Normal Saline IV 12/17/18 17:04 999 mls/hr .BOLUS ONE Administration Lorazepam 0.5 mg 12/17/18 16:34 12/17/18 16:57 Ativan IVPUSH 12/17/18 16:35 0.5 mg ONETIME ONE Administration - Re-Assessments/Exams Free Text/Narrative Re-Assessment/Exam: 12/17/18 18:34 White blood count is normal chemistries are mostly good, anion gap very mildly elevated at 16.4. Did give Ativan 0.5 mg IV with plan to get a catheter UA. Patient still became extremely anxious, agitated at the thought of that procedure. Therefore or staff did do the best they could to get a clean catch urine. That is still pending. I am past change of shift, Dr. Washington, night Phys is taking over care. I discussed this with family. I also am going to provide a prescription for Ativan 0.5 mg at bedtime for sleep and relaxation for the benefit of patient and her who both have been struggling the last few nights. Departure - Departure Disposition: Home, Self-Care 01 Clinical Impression: Dementia - Discharge Information Referrals: John Banks MD [Primary Care Provider] - Forms: ED Department Discharge Additional Instructions: Return to emergency room if any questions problems worsening symptoms. Continue working on [facility] facility placement. Follow-up with Dr. Clemente on as scheduled. Use the Ativan Dr. Magaña gave you as needed. <Natan Washington - Last Filed: 12/17/18 19:49> Course - Re-Assessments/Exams Free Text/Narrative Re-Assessment/Exam: 12/17/18 19:46 Analysis is contaminated lots of epithelial cells trace leukocyte Estrace no nitrates. I did go in and examine the patient heart and lungs are clear abdomen is really nontender she has no suprapubic discomfort no CVA discomfort I believe probability of the acute UTIs somewhat limited. I did discuss this with family and the patient they concurred that the patient would not put up with a catheter specimen to fully exclude a UTI. They have follow-up with Dr. Clemente on and will continue to work on long-term nursing facility placement. Departure - Departure Time of Disposition: 19:48
== END 2018-12-17 20:00 | disposition home or self-care (01) ==
LOC: JD.ED 16:02
DX: F03.90 Unspecified dementia, unspecified severity, without behavioral disturbance, psychotic disturbance, mood disturbance, and anxiety (principal); K21.9 Gastro-esophageal reflux disease without esophagitis; F41.9 Anxiety disorder, unspecified; E03.9 Hypothyroidism, unspecified; Z79.899 Other long term (current) drug therapy; Z79.82 Long term (current) use of aspirin
CPT/HCPCS: 36415; 80053; 81001; 85025; 86140; 96361; 96374; 99284; J2060; J7040

== ENCOUNTER 2019-02-18 22:48 | Emergency (ER) | payer MEDICARE, OTHER ==
--- NOTE | 2019-02-18 23:16 | EDM.PDOC ---
ED HPI GENERAL MEDICAL PROBLEM - General Chief Complaint: General Stated Complaint: FALLS Time Seen by Provider: 02/18/19 23:06 - History of Present Illness INITIAL COMMENTS - FREE TEXT/NARRATIVE: 78-year-old female brought in by her with concerns of unsteady gait. This is been getting worse over the last couple of days tonight she staggered up and down the hallway but did not fall however on Sunday she did fall. This is getting to be more of a recurrent problem. Patient has advanced dementia getting worse over time. Local [facility] facilities have not wanted to take her because they don't lock down units. However the states he's doing okay taking care of her at home. He is not aware of her having any fevers or chills or complaining of pain anywhere. She has a walker at home but generally will not use it. - Related Data Allergies Allergy/AdvReac Type Severity Reaction Status Date / Time No Known Allergies Allergy Verified 02/18/19 23:06 Home Meds: Home Meds Aspirin 81 mg PO BEDTIME 08/23/16 [History] Cholecalciferol (Vitamin D3) [Vitamin D3] 1,000 units PO DAILY 08/23/16 [History ] Gluc HCl/Csa/Dangelo Hy/Hyalur Ac [Glucosamine Chondroitin] 1 tab PO BID 08/23/16 [ History] Levothyroxine 25 mcg PO DAILY 08/23/16 [History] Lisinopril [Prinivil] 2.5 mg PO DAILY 08/23/16 [History] buPROPion [Wellbutrin XL] 300 mg PO DAILY 08/23/16 [History] Calcium Carbonate [Calcium] 500 mg PO BID 12/24/16 [History] Ferrous Sulfate [Iron] 325 mg PO DAILY 12/24/16 [History] Multivitamin [Multi-Day Vitamins] 1 each PO DAILY 12/24/16 [History] [place]-3 Fatty Acids [Fish Oil] 300 mg PO BID 12/24/16 [History] Vitamin B Complex 1 each PO BEDTIME 12/24/16 [History] Clobetasol [Clobetasol Propionate 0.05% Cream] 1 dose TOP ASDIRECTED PRN [History] Donepezil [Aricept] 5 mg PO BEDTIME 12/17/18 [History] Lenalidomide [Revlimid] 1 tab PO ASDIRECTED 12/17/18 [History] Melatonin/Pyridoxine HCl (B6) [Melatonin 3 mg Tablet] 2 tab PO BEDTIME 12/17/18 [History] Prevagen 1 tab PO DAILY 12/17/18 [History] Rosuvastatin [Crestor] 10 mg PO DAILY 12/17/18 [History] Sertraline [Zoloft] 100 mg PO BEDTIME 12/17/18 [History] Nitrofurantoin Monohyd/M-Cryst [Macrobid 100 mg Capsule] 100 mg PO Q12H #14 capsule 02/19/19 [Rx] Past Medical History HEENT History: Reports: Cataract, Impaired Vision Cardiovascular History: Reports: [place] Gastrointestinal History: Reports: GERD 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 - Past Surgical History Cardiovascular Surgical History: Reports: Coronary Artery Stent Other GI Surgeries/Procedures: Anti reflux procedure for GERD Social & Family History - Family History Family Medical History: Noncontributory Cardiac: Reports: [place] Neurological: Reports: CVA - Caffeine Use Caffeine Use: Reports: Coffee - Living Situation & Occupation Living situation: Reports: , with Spouse Occupation: Retired ED ROS GENERAL - Review of Systems Review Of Systems: See Below Constitutional: Denies: Fever, Chills HEENT: Reports: No Symptoms Respiratory: Reports: No Symptoms Cardiovascular: Reports: No Symptoms Endocrine: Reports: No Symptoms GI/Abdominal: Reports: No Symptoms Musculoskeletal: Reports: Other (She is been having some low back discomfort) Skin: Reports: No Symptoms Neurological: Reports: Other (Chronic dementia) Psychiatric: Denies: Agitation ED EXAM, GENERAL - Physical Exam Exam: See Below Exam Limited By: Uncooperative General Appearance: Alert, No Apparent Distress, Other (She denies any pain) Eye Exam: Bilateral Eye: Normal Inspection Ears: Normal External Exam, Normal Canal, Hearing Grossly Normal, Normal TMs Nose: Normal Inspection, Normal Mucosa, No Blood Throat/Mouth: Normal Inspection, Normal Lips, Normal Gums, Normal Oropharynx, Normal Voice, No Airway Compromise Head: Atraumatic, Normocephalic Neck: Normal Inspection, Supple, Non-Tender, Full Range of Motion Respiratory/Chest: No Respiratory Distress, Lungs Clear, Normal Breath Sounds Cardiovascular: Regular Rate, Rhythm, No Edema, No Murmur GI/Abdominal: Normal Bowel Sounds, Soft, Non-Tender Back Exam: Normal Inspection. No: CVA Tenderness (L), CVA Tenderness (R), Vertebral Tenderness Extremities: Normal Inspection, No Pedal Edema Neurological: Alert, Confused Skin Exam: Warm, Dry, Intact EKG INTERPRETATION EKG Date: 02/18/19 Rhythm: Other (Sinus dysrhythmia) Rate (Beats/Min): 91 [place]: Other (Slight leftward axis) P-Wave: Present QRS: Normal ST-T: Other QT: Normal Comparison: Change From Previous EKG (Rate variability changes from 1016 otherwise no significant changes) EKG Interpretation Comments: Sinus dysrhythmia no acute change Course - Vital Signs Last Recorded V/S: Last Vital Signs Temp 36.6 C 02/18/19 22:59 Pulse 103 H 02/18/19 22:59 Resp 16 02/18/19 22:59 BP 147/58 H 02/18/19 22:59 Pulse Ox 97 02/18/19 22:59 - Orders/Labs/Meds Orders: Active Orders 24 hr Category Date Time Status EKG Documentation Completion [RC] STAT Care 02/18/19 23:22 Active Head wo Cont [CT] Stat Exams 02/18/19 23:22 Taken Labs: Laboratory Tests 02/18/19 02/18/19 02/19/19 Range/Units 23:35 23:35 00:14 WBC 5.23 (3.98-10.04) K/mm3 RBC 4.07 (3.98-5.22) M/mm3 Hgb 13.0 (11.2-15.7) gm/L Hct 39.4 (34.1-44.9) % MCV 96.8 H (79.4-94.8) fl MCH 31.9 (25.6-32.2) pg MCHC 33.0 (32.2-35.5) g/dl RDW Std Deviation 49.3 H (36.4-46.3) fL Plt Count 191 (182-369) K/mm3 MPV 9.9 (9.4-12.3) fl Neutrophils % (Manual) 68 H (40-60) % Band Neutrophils % 1 (0-10) % Lymphocytes % (Manual) 21 (20-40) % Atypical Lymphs % 0 % Monocytes % (Manual) 3 (2-10) % Eosinophils % (Manual) 4 (0.7-5.8) % Basophils % (Manual) 2 H (0.1-1.2) Promyelocytes % 1 Toxic Granulation 1+ slight Platelet Estimate Adequate Plt Morphology Comment Normal RBC Morph Comment Normal Sodium 140 (136-145) mEq/L Potassium 3.8 (3.5-5.1) mEq/L Chloride 105 (98-107) mEq/L Carbon Dioxide 21 (21-32) mEq/L Anion Gap 17.8 H (5-15) BUN 40 H (7-18) mg/dL Creatinine 2.0 H (0.55-1.02) mg/dL Est Cr Clr Drug Dosing 16.65 mL/min Estimated GFR (MDRD) 24 (>60) mL/min BUN/Creatinine Ratio 20.0 H (14-18) Glucose 131 H (83-115) mg/dL Calcium 9.7 (8.5-10.1) mg/dL Total Bilirubin 0.5 (0.2-1.0) mg/dL AST 22 (15-37) U/L ALT 26 (14-59) U/L Alkaline Phosphatase 57 (46-116) U/L Total Protein 6.5 (6.4-8.2) g/dl Albumin 3.4 (3.4-5.0) g/dl Globulin 3.1 gm/dL Albumin/Globulin Ratio 1.1 (1-2) Urine Color Yellow (Yellow) Urine Appearance Slt cloudy H (Clear) Urine pH 5.5 (5.0-8.0) Ur Specific [place] 1.020 (1.005-1.030) Urine Protein 1+ H (Negative) Urine Glucose (UA) Negative (Negative) Urine Ketones Trace H (Negative) Urine Occult Blood 1+ H (Negative) Urine Nitrite Negative (Negative) Urine Bilirubin Negative (Negative) Urine Urobilinogen 0.2 (0.2-1.0) Ur Leukocyte Esterase 2+ H (Negative) Urine RBC 5-10 H (0-5) /hpf Urine WBC 20-30 H (0-5) /hpf Urine WBC Clumps Rare (NOT SEEN) /hpf Ur Epithelial Cells Not seen (0-5) /hpf Urine Bacteria Many H (FEW) /hpf Hyaline Casts 0-5 (0-5) /lpf Urine Mucus Moderate H (FEW) /hpf Meds: Medications Discontinued Medications Generic Name Dose Route Start Last Admin Trade Name Guido PRN Reason Stop Dose Admin Lactated Ringer's 1,000 mls @ 999 mls/hr 02/19/19 00:14 02/19/19 00:32 Ringers, Lactated IV 02/19/19 01:14 999 mls/hr .BOLUS ONE Administration - Re-Assessments/Exams Free Text/Narrative Re-Assessment/Exam: 02/19/19 00:18 Labs reviewed and over time it looks like her BUN/creatinine is working its way up will give some fluid. No other significant abnormalities noted still waiting on urinalysis 02/19/19 01:30 Urinalysis is suggestive of a UTI will start Macrobid Departure - Departure Time of Disposition: 01:33 Disposition: Home, Self-Care 01 Clinical Impression: Dehydration, Renal insufficiency, Urinary tract infection - Discharge Information Prescriptions: Nitrofurantoin Monohyd/M-Cryst [Macrobid 100 mg Capsule] 100 mg PO Q12H #14 capsule Referrals: John Banks MD [Primary Care Provider] - Forms: ED Department Discharge Additional Instructions: Return to the emergency room with any questions problems worsening symptoms. Follow-up with your regular physician early next week and have her kidney function rechecked. Encourage her to drink plenty of fluids. Take the antibiotics for the bladder infection as directed. - My Orders Last 24 Hours: My Active Orders 02/18/19 23:22 EKG Documentation Completion [RC] STAT Head wo Cont [CT] Stat - Assessment/Plan Last 24 Hours: My Active Orders 02/18/19 23:22 EKG Documentation Completion [RC] STAT Head wo Cont [CT] Stat
[2019-02-18 23:23] VITALS: BP 147/58
[2019-02-19] MEDS ORDERED: Lactated Ringers 1,000 ML IV ONE (00:14)
[2019-02-19] MEDS ORDERED: Nitrofurantoin Monohydrate/Macrocrystalline 100 MG Cap PO ONE (01:31)
--- NOTE | 2019-02-19 06:22 | CT ---
Head CT Technique: Multiple axial sections through the brain were obtained. Intravenous contrast was not utilized. Comparison: Previous head CT study of 12/24/16. Findings: Ventricles along with basal cisterns and sulci over the convexities are mildly prominent. Mild diminished density is noted within the periventricular and subcortical white matter compatible with small vessel ischemic demyelination change. No other abnormal parenchymal densities are seen. No evidence of intracranial hemorrhage. No midline shift or mass effect is seen. Bone window settings were reviewed which shows abnormal mineralization of the calvarium which appears fairly stable from previous exam. No acute calvarial abnormality is seen. Visualized sinuses are clear. Atherosclerotic calcification is seen within the carotid siphon. Impression: 1. Senescent change as noted above. 2. Irregular mineralization of the calvarium which may represent change from severe osteoporosis as well as stable metastatic lesions from multiple myeloma or other metastatic disease. 3. No acute intracranial abnormality is seen. No skull fracture is seen. Diagnostic code #3 I agree with preliminary report from [facility], finalized on 02/19/19, 1:17 AM Central Time
== END 2019-02-19 01:45 | disposition home or self-care (01) ==
LOC: JD.ED 22:48
DX: E86.0 Dehydration (principal); N28.9 Disorder of kidney and ureter, unspecified; N39.0 Urinary tract infection, site not specified; K21.9 Gastro-esophageal reflux disease without esophagitis; E03.9 Hypothyroidism, unspecified; I25.2 Old myocardial infarction; Z79.82 Long term (current) use of aspirin; Z79.899 Other long term (current) drug therapy
CPT/HCPCS: 36415; 70450; 80053; 81001; 85007; 85027; 87086; 87088; 87186; 96360; 99284; A9270; J7120; 99283